=== PATIENT | female | born 1980 | race Caucasian/White ===

== ENCOUNTER 2017-12-28 13:49 | Inpatient (IN) | payer OTHER ==
[2017-12-28 15:23] LABS: ADD MAN DIFF? NO
[2017-12-28 15:29] LABS: WHITE BLOOD COUNT 9.1 10^3/ul (4.8-10.8)
[2017-12-28 15:29] LABS: BASOPHILS % 0.4 % (0.0-2.0); EOSINOPHILS # 0.3 10^3/ul (0.0-0.5); EOSINOPHILS % 3.4 % (0.0-7.0); HEMATOCRIT 40.6 % (37.0-47.0); HEMOGLOBIN 13.7 g/dl (12.0-16.0); LYMPHOCYTES # 2.7 10^3/ul (0.8-2.9); LYMPHOCYTES % 29.9 % (15.0-51.0); MEAN CORPUSCULAR HEMOGLOBIN 29.1 pg (29.0-33.0); MEAN CORPUSCULAR HGB CONC 33.7 g/dl (32.0-37.0); MEAN CORPUSCULAR VOLUME 86.2 fl (82.0-101.0); MEAN PLATELET VOLUME 8.6 fl (7.4-10.4); MONOCYTE # 0.7 10^3/ul (0.3-0.9); MONOCYTES % 7.7 % (0.0-11.0); NEUTROPHIL # 5.3 10^3/ul (1.6-7.5); NEUTROPHILS % 58.4 % (39.0-77.0); PLATELET COUNT 278 10^3/UL (140-415); RED BLOOD COUNT 4.71 10^6/ul (4.20-5.40); RED CELL DISTRIBUTION WIDTH 12.6 % (11.5-14.5)
[2017-12-28 15:48] LABS: ANION GAP 11 (8-16); BLOOD UREA NITROGEN 15 mg/dl (7-20); CALCIUM 9.1 mg/dl (8.4-10.2); CARBON DIOXIDE 26 mmol/L (21-31); CHLORIDE 105 mmol/L (97-110); CREATININE 0.79 mg/dl (0.44-1.00); GLUCOSE 91 mg/dl (70-220); POTASSIUM 3.7 mmol/L (3.5-5.1); SODIUM 138 mmol/L (135-144)
[2017-12-28 15:59] LABS: TROPONIN-I < 0.012 ng/ml (0.000-0.120)
[2017-12-28 17:22] LABS: D-DIMER 395.77 ng/ml (<460)
[2017-12-28] MEDS ORDERED: ONDANSETRON 4 MG INJ IV ×2 (19:30→20:30)
[2017-12-28] MEDS ORDERED: ACETAMINOPHEN 325 MG TAB PO ×2 (19:30→20:30)
[2017-12-28] MEDS ORDERED: DIPHENHYDRAMINE 50 MG INJ (20:18)
[2017-12-28] MEDS ORDERED: METOCLOPRAMIDE 10 MG INJ (20:18)
[2017-12-28] MEDS: DIPHENHYDRAMINE 50 MG INJ IV (20:23)
[2017-12-28] MEDS: METOCLOPRAMIDE 10 MG INJ IV (20:23)
[2017-12-28] MEDS ORDERED: BISACODYL (EC) 5 MG TAB PO (20:30)
[2017-12-28] MEDS ORDERED: NACL 0.9% 3 ML SYG IV (20:30)
[2017-12-28] MEDS ORDERED: DOCUSATE SODIUM 100 MG CAP PO (20:30)
[2017-12-28 21:16] LABS: PT RATIO 0.9
[2017-12-28 21:23] LABS: INR 0.87; PROTIME 11.9 Sec (11.9-14.9)
[2017-12-28] MEDS ORDERED: ASA/ACETAMINOPHEN/CAFF TAB PO (23:00)
[2017-12-28 23:04] LABS: CREATINE KINASE 32 IU/L (23-200)
[2017-12-28 23:14] LABS: CK INDEX 0.7; CK-MB < 0.22 ng/ml (0.0-2.4); TROPONIN-I < 0.012 ng/ml (0.000-0.120)
[2017-12-29] MEDS: KETOROLAC 30 MG INJ IV (03:36)
[2017-12-29 05:52] LABS: ADD MAN DIFF? NO
[2017-12-29 06:02] LABS: WHITE BLOOD COUNT 5.9 10^3/ul (4.8-10.8)
[2017-12-29 06:02] LABS: BASOPHILS % 0.5 % (0.0-2.0); EOSINOPHILS # 0.3 10^3/ul (0.0-0.5); EOSINOPHILS % 4.7 % (0.0-7.0); HEMOGLOBIN 12.9 g/dl (12.0-16.0); LYMPHOCYTES # 2.3 10^3/ul (0.8-2.9); LYMPHOCYTES % 38.9 % (15.0-51.0); MEAN CORPUSCULAR HGB CONC 33.1 g/dl (32.0-37.0); MEAN CORPUSCULAR VOLUME 87.6 fl (82.0-101.0); MEAN PLATELET VOLUME 8.3 fl (7.4-10.4); MONOCYTE # 0.5 10^3/ul (0.3-0.9); MONOCYTES % 8.9 % (0.0-11.0); NEUTROPHIL # 2.8 10^3/ul (1.6-7.5); NEUTROPHILS % 46.8 % (39.0-77.0); PLATELET COUNT 225 10^3/UL (140-415); RED BLOOD COUNT 4.45 10^6/ul (4.20-5.40); RED CELL DISTRIBUTION WIDTH 12.7 % (11.5-14.5)
[2017-12-29 07:24] LABS: ALANINE AMINOTRANSFERASE 35 IU/L (13-69); ALBUMIN 3.2 g/dl (3.3-4.9); ALBUMIN/GLOBULIN RATIO 0.96; ALKALINE PHOSPHATASE 112 IU/L (42-121); ANION GAP 11 (8-16); ASPARTATE AMINO TRANSFERASE 34 IU/L (15-46); BILIRUBIN,INDIRECT 0.4 mg/dl (0-1.1); BILIRUBIN,TOTAL 0.4 mg/dl (0.2-1.3); BLOOD UREA NITROGEN 14 mg/dl (7-20); CALCIUM 9.1 mg/dl (8.4-10.2); CARBON DIOXIDE 26 mmol/L (21-31); CHLORIDE 109 mmol/L (97-110); CHOLESTEROL 132 mg/dl (100-200); CREATININE 0.92 mg/dl (0.44-1.00); GLUCOSE 91 mg/dl (70-220); HDL CHOLESTEROL 44 mg/dl (34-82); LDL CHOLESTEROL,CALCULATED 54 mg/dl; MAGNESIUM 1.8 mg/dl (1.7-2.5); POTASSIUM 4.3 mmol/L (3.5-5.1); SODIUM 142 mmol/L (135-144); TOTAL PROTEIN 6.5 g/dl (6.1-8.1); TRIGLYCERIDES 169 mg/dl (0-149)
[2017-12-29 08:59] LABS: HEMOGLOBIN A1C 5.1 % (0-5.9)
[2017-12-29] MEDS ORDERED: ASPIRIN (EC) 325 MG TAB PO (14:00)
[2017-12-29] MEDS: SOD CHLORIDE 0.9% 100 ML (16:05)
[2017-12-29] MEDS: IOHEXOL 100 ML (16:05)
[2017-12-30] MEDS: ASPIRIN (EC) 325 MG TAB PO (08:47)
[2017-12-30] MEDS: CYANOCOBALAMIN 1000 MCG INJ IM (18:29)
== END 2017-12-30 18:54 | disposition home or self-care (01) | DRG 103 ==
LOC: E/R 13:49 → TEL 19:15
PROVIDERS: Internal Medicine
DX: G43.409 Hemiplegic migraine, not intractable, without status migrainosus (principal); K50.90 Crohn's disease, unspecified, without complications; R20.2 Paresthesia of skin; I48.0 Paroxysmal atrial fibrillation; Z85.43 Personal history of malignant neoplasm of ovary; Z90.710 Acquired absence of both cervix and uterus; Z90.49 Acquired absence of other specified parts of digestive tract
CPT/HCPCS: 36415; 70551; 71045; 71275; 72125; 80048; 80053; 80061; 82550; 82553; 82607; 83036; 83735; 84443; 84484; 84703; 85025; 85378; 85610; 93005; 93306; 93880; 97161; 99285-25

== ENCOUNTER 2018-11-04 08:22 | Inpatient (IN) | payer OTHER ==
[2018-11-04] MEDS: ONDANSETRON 4 MG INJ IV (09:09)
[2018-11-04] MEDS: morphine 4 MG/ML VIAL IV (09:09)
[2018-11-04] MEDS: SOD CHLORIDE 0.9% 1,000 ML IV (09:09)
[2018-11-04 09:14] LABS: ADD MAN DIFF? NO
[2018-11-04 09:20] LABS: WHITE BLOOD COUNT 9.2 10^3/ul (4.8-10.8)
[2018-11-04 09:20] LABS: BASOPHILS % 0.3 % (0.0-2.0); EOSINOPHILS # 0.2 10^3/ul (0.0-0.5); EOSINOPHILS % 2.1 % (0.0-7.0); HEMATOCRIT 44.7 % (37.0-47.0); HEMOGLOBIN 14.9 g/dl (12.0-16.0); LYMPHOCYTES # 1.9 10^3/ul (0.8-2.9); LYMPHOCYTES % 21.1 % (15.0-51.0); MEAN CORPUSCULAR HEMOGLOBIN 28.8 pg (29.0-33.0); MEAN CORPUSCULAR HGB CONC 33.3 g/dl (32.0-37.0); MEAN CORPUSCULAR VOLUME 86.3 fl (82.0-101.0); MEAN PLATELET VOLUME 8.4 fl (7.4-10.4); MONOCYTE # 0.6 10^3/ul (0.3-0.9); MONOCYTES % 6.3 % (0.0-11.0); NEUTROPHIL # 6.4 10^3/ul (1.6-7.5); NEUTROPHILS % 69.9 % (39.0-77.0); PLATELET COUNT 260 10^3/UL (140-415); RED BLOOD COUNT 5.18 10^6/ul (4.20-5.40); RED CELL DISTRIBUTION WIDTH 12.3 % (11.5-14.5)
[2018-11-04 09:24] LABS: ADD UMIC NO; UR ASCORBIC ACID 40 mg/dL (NEGATIVE); UR BILIRUBIN (Dip) NEGATIVE (NEGATIVE); UR BLOOD (Dip) NEGATIVE (NEGATIVE); UR CLARITY CLEAR (CLEAR); UR COLOR YELLOW (YELLOW); UR GLUCOSE (Dip) NEGATIVE (NEGATIVE); UR KETONES (Dip) NEGATIVE (NEGATIVE); UR LEUKOCYTE ESTERASE (Dip) NEGATIVE Leu/ul (NEGATIVE); UR NITRITE (Dip) NEGATIVE (NEGATIVE); UR SPECIFIC GRAVITY (Dip) 1.021 (1.003-1.030); UR TOTAL PROTEIN (Dip) NEGATIVE (NEGATIVE); UR UROBILINOGEN (Dip) NEGATIVE (NEGATIVE)
[2018-11-04 09:44] LABS: ALANINE AMINOTRANSFERASE 44 IU/L (13-69); ALBUMIN 4.7 g/dl (3.3-4.9); ALBUMIN/GLOBULIN RATIO 1.51; ALKALINE PHOSPHATASE 139 IU/L (42-121); ANION GAP 9 (5-13); ASPARTATE AMINO TRANSFERASE 41 IU/L (15-46); BILIRUBIN,INDIRECT 0.5 mg/dl (0-1.1); BILIRUBIN,TOTAL 0.5 mg/dl (0.2-1.3); BLOOD UREA NITROGEN 17 mg/dl (7-20); CALCIUM 10.3 mg/dl (8.4-10.2); CARBON DIOXIDE 27 mmol/L (21-31); CHLORIDE 105 mmol/L (97-110); CREATININE 0.91 mg/dl (0.44-1.00); Estimated GFR > 60 mL/min (>60); GLUCOSE 87 mg/dl (70-220); LIPASE 73 U/L (23-300); POTASSIUM 4.2 mmol/L (3.5-5.1); SODIUM 141 mmol/L (135-144)
[2018-11-04 09:55] LABS: TOTAL PROTEIN 7.8 g/dl (6.1-8.1)
[2018-11-04] MEDS: SOD CHLORIDE 0.9% 100 ML (10:32)
[2018-11-04] MEDS: IOHEXOL 300MG/ML 150 ML BTL (10:32)
[2018-11-04] MEDS: HYDROmorphONE 2 MG/ML SYG IV (11:17)
[2018-11-04] MEDS ORDERED: ACETAMINOPHEN 325 MG TAB PO (12:30)
[2018-11-04] MEDS ORDERED: ONDANSETRON 4 MG INJ IV (12:30)
[2018-11-04 13:53] LABS: C-REACTIVE PROTEIN 0.8 mg/dl (0.0-0.9)
[2018-11-04 14:47] LABS: ERYTHROCYTE SEDIMENTATION RATE 5 mm/Hr (0-20)
[2018-11-04] MEDS: METHYLPREDNISOLONE 40 MG INJ IV ×2 (15:44→22:13)
[2018-11-04] MEDS ORDERED: NACL 0.9% 3 ML SYG IV (16:30)
[2018-11-04] MEDS ORDERED: DILTIAZEM 25 MG INJ IV (17:00)
[2018-11-04] MEDS: DEXTROSE 5%-0.45% NACL 1,000 ML IV (18:11)
[2018-11-04] MEDS: morphine 2 MG INJ IV (19:56)
[2018-11-04] MEDS: KETOROLAC 30 MG INJ IV (22:13)
[2018-11-05] MEDS: METHYLPREDNISOLONE 40 MG INJ IV ×3 (05:29→22:10)
[2018-11-05] MEDS: DEXTROSE 5%-0.45% NACL 1,000 ML IV ×3 (05:29→22:28)
[2018-11-05] MEDS: PANTOPRAZOLE 40 MG INJ IV (05:29)
[2018-11-05 05:30] LABS: HEMATOCRIT 39.1 % (37.0-47.0); HEMOGLOBIN 13.1 g/dl (12.0-16.0); MEAN CORPUSCULAR HEMOGLOBIN 28.7 pg (29.0-33.0); MEAN CORPUSCULAR HGB CONC 33.5 g/dl (32.0-37.0); MEAN CORPUSCULAR VOLUME 85.7 fl (82.0-101.0); MEAN PLATELET VOLUME 8.8 fl (7.4-10.4); PLATELET COUNT 246 10^3/UL (140-415); RED BLOOD COUNT 4.56 10^6/ul (4.20-5.40); RED CELL DISTRIBUTION WIDTH 12.3 % (11.5-14.5)
[2018-11-05 05:30] LABS: WHITE BLOOD COUNT 6.4 10^3/ul (4.8-10.8)
[2018-11-05 05:32] LABS: ADD MAN DIFF? YES; POSITIVE DIFF @See below
[2018-11-05 06:37] LABS: ALANINE AMINOTRANSFERASE 31 IU/L (13-69); ALBUMIN 3.9 g/dl (3.3-4.9); ALBUMIN/GLOBULIN RATIO 1.25; ALKALINE PHOSPHATASE 111 IU/L (42-121); ANION GAP 8 (5-13); ASPARTATE AMINO TRANSFERASE 32 IU/L (15-46); BILIRUBIN,INDIRECT 0.4 mg/dl (0-1.1); BILIRUBIN,TOTAL 0.4 mg/dl (0.2-1.3); BLOOD UREA NITROGEN 12 mg/dl (7-20); CALCIUM 9.2 mg/dl (8.4-10.2); CARBON DIOXIDE 25 mmol/L (21-31); CHLORIDE 106 mmol/L (97-110); CREATININE 0.75 mg/dl (0.44-1.00); Estimated GFR > 60 mL/min (>60); GLUCOSE 141 mg/dl (70-220); MAGNESIUM 1.8 mg/dl (1.7-2.5); POTASSIUM 4.4 mmol/L (3.5-5.1); SODIUM 139 mmol/L (135-144)
[2018-11-05 06:53] LABS: THYROID STIMULATING HORMONE 0.501 MIU/L (0.465-4.680)
[2018-11-05 07:44] LABS: BAND NEUTROPHILS #M 0.4 10^3/ul (0.0-0.6); BAND NEUTROPHILS % (M) 7 % (0-4); GIANT THROMBO% (M) 1 % (0-0); LYMPHOCYTES #M 0.9 10^3/ul (0.8-2.9); LYMPHOCYTES % (M) 15 % (15-51); PLATELET ESTIMATE NORMAL; REACTIVE LYMPHOCYTES #M 0.2 10^3/ul (0.0-0.0); REACTIVE LYMPHOCYTES% (M) 4 % (0-0); SEG NEUT #M 4.8 10^3/ul (1.6-7.5); SEGMENTED NEUTROPHILS (M) % 74 % (39-77); SMUDGE%M 8 % (0-0); SPHEROCYTES 1+ (0-0)
[2018-11-05 08:16] LABS: HEMOGLOBIN A1C 4.9 % (0-5.9)
[2018-11-05] MEDS: ESTRADIOL 0.1 MG/24 HR PATCH TRANSDERM (09:56)
[2018-11-05] MEDS: PHENOL 1.4% SOLN 180 ML BTL MT ×2 (12:38→22:11)
[2018-11-05] MEDS: morphine 2 MG INJ IV ×3 (12:42→22:14)
[2018-11-05] MEDS: MAGNESIUM SULFATE 2 GM/50 ML 50 ML IVPB (14:38)
[2018-11-05] MEDS: DIGOXIN 500 MCG INJ IV (14:38)
[2018-11-05] MEDS: KETOROLAC 30 MG INJ IV (14:42)
[2018-11-05] MEDS: METOPROLOL 5 MG INJ IV ×2 (14:43→17:49)
[2018-11-06] MEDS: GLUCAGON 1 MG INJ IV (01:00)
[2018-11-06] MEDS: IOHEXOL 100 ML (01:52)
[2018-11-06] MEDS: SOD CHLORIDE 0.9% 100 ML (01:52)
[2018-11-06] MEDS: IOHEXOL 350MG/ML 50 ML BTL (01:52)
[2018-11-06] MEDS: IOHEXOL 14.3 MG(I)/ML (ADULT) BTL PO (02:03)
[2018-11-06] MEDS: DEXTROSE 5%-0.45% NACL 1,000 ML IV (04:30)
[2018-11-06 05:49] LABS: ADD MAN DIFF? NO
[2018-11-06 05:51] LABS: BASOPHILS % 0.1 % (0.0-2.0); HEMATOCRIT 38.9 % (37.0-47.0); HEMOGLOBIN 12.8 g/dl (12.0-16.0); LYMPHOCYTES # 1.1 10^3/ul (0.8-2.9); LYMPHOCYTES % 7.2 % (15.0-51.0); MEAN CORPUSCULAR HEMOGLOBIN 28.9 pg (29.0-33.0); MEAN CORPUSCULAR HGB CONC 32.9 g/dl (32.0-37.0); MEAN CORPUSCULAR VOLUME 87.8 fl (82.0-101.0); MEAN PLATELET VOLUME 8.8 fl (7.4-10.4); MONOCYTE # 0.8 10^3/ul (0.3-0.9); MONOCYTES % 5.2 % (0.0-11.0); NEUTROPHIL # 12.7 10^3/ul (1.6-7.5); NEUTROPHILS % 86.7 % (39.0-77.0); PLATELET COUNT 246 10^3/UL (140-415); RED BLOOD COUNT 4.43 10^6/ul (4.20-5.40); RED CELL DISTRIBUTION WIDTH 12.6 % (11.5-14.5)
[2018-11-06 05:51] LABS: WHITE BLOOD COUNT 14.6 10^3/ul (4.8-10.8)
[2018-11-06] MEDS: PANTOPRAZOLE 40 MG INJ IV (06:01)
[2018-11-06] MEDS: METHYLPREDNISOLONE 40 MG INJ IV ×3 (06:01→21:46)
[2018-11-06] MEDS: METOPROLOL 5 MG INJ IV ×3 (06:02→11:14)
[2018-11-06 06:14] LABS: ANION GAP 7 (5-13); BLOOD UREA NITROGEN 14 mg/dl (7-20); CARBON DIOXIDE 26 mmol/L (21-31); CHLORIDE 105 mmol/L (97-110); CREATININE 0.74 mg/dl (0.44-1.00); Estimated GFR > 60 mL/min (>60); GLUCOSE 133 mg/dl (70-220); MAGNESIUM 2.3 mg/dl (1.7-2.5); PHOSPHORUS 3.8 mg/dl (2.5-4.9); POTASSIUM 4.2 mmol/L (3.5-5.1); SODIUM 138 mmol/L (135-144)
[2018-11-06] MEDS: morphine 2 MG INJ IV (07:36)
[2018-11-06] MEDS: ESTRADIOL 0.1 MG/24 HR PATCH TRANSDERM ×2 (09:00→09:10)
[2018-11-06] MEDS ORDERED: METOPROLOL 5 MG INJ IV (12:30)
[2018-11-06] MEDS: FLECAINIDE 50 MG TAB PO ×2 (13:11→21:47)
[2018-11-06] MEDS: DILTIAZEM 30 MG TAB PO ×2 (13:11→18:20)
[2018-11-06] MEDS: KETOROLAC 30 MG INJ IV (21:55)
[2018-11-07] MEDS: PANTOPRAZOLE 40 MG INJ IV (05:41)
[2018-11-07] MEDS: METHYLPREDNISOLONE 40 MG INJ IV (05:41)
[2018-11-07] MEDS: DILTIAZEM 30 MG TAB PO ×4 (05:49→19:03)
[2018-11-07 06:08] LABS: ADD MAN DIFF? NO
[2018-11-07 06:57] LABS: ANION GAP 9 (5-13); BLOOD UREA NITROGEN 16 mg/dl (7-20); CALCIUM 9.3 mg/dl (8.4-10.2); CARBON DIOXIDE 25 mmol/L (21-31); CHLORIDE 105 mmol/L (97-110); CREATININE 0.72 mg/dl (0.44-1.00); Estimated GFR > 60 mL/min (>60); GLUCOSE 108 mg/dl (70-220); MAGNESIUM 2.2 mg/dl (1.7-2.5); PHOSPHORUS 4.6 mg/dl (2.5-4.9); POTASSIUM 4.6 mmol/L (3.5-5.1); SODIUM 139 mmol/L (135-144)
[2018-11-07] MEDS: FLECAINIDE 50 MG TAB PO ×2 (08:30→20:52)
[2018-11-07 08:48] LABS: BASOPHILS % 0.1 % (0.0-2.0); HEMATOCRIT 40.9 % (37.0-47.0); HEMOGLOBIN 13.1 g/dl (12.0-16.0); LYMPHOCYTES # 1.5 10^3/ul (0.8-2.9); LYMPHOCYTES % 12.8 % (15.0-51.0); MEAN CORPUSCULAR HEMOGLOBIN 28.2 pg (29.0-33.0); MEAN CORPUSCULAR VOLUME 88.1 fl (82.0-101.0); MEAN PLATELET VOLUME 8.9 fl (7.4-10.4); MONOCYTE # 0.4 10^3/ul (0.3-0.9); MONOCYTES % 3.1 % (0.0-11.0); NEUTROPHIL # 9.5 10^3/ul (1.6-7.5); NEUTROPHILS % 83.5 % (39.0-77.0); PLATELET COUNT 247 10^3/UL (140-415); RED BLOOD COUNT 4.64 10^6/ul (4.20-5.40)
[2018-11-07 08:48] LABS: WHITE BLOOD COUNT 11.4 10^3/ul (4.8-10.8)
[2018-11-07] MEDS ORDERED: HYDROCODONE/APAP (5/325) TAB PO (09:30)
[2018-11-07] MEDS: predniSONE 20 MG TAB PO (13:21)
[2018-11-07] MEDS: ONDANSETRON 4 MG INJ IV ×2 (13:22→20:52)
[2018-11-08] MEDS: DILTIAZEM 30 MG TAB PO ×4 (05:39→22:00)
[2018-11-08] MEDS: ONDANSETRON 4 MG INJ IV (05:51)
[2018-11-08 06:19] LABS: ADD MAN DIFF? NO
[2018-11-08 06:29] LABS: WHITE BLOOD COUNT 11.1 10^3/ul (4.8-10.8)
[2018-11-08 06:29] LABS: BASOPHILS % 0.1 % (0.0-2.0); HEMATOCRIT 38.4 % (37.0-47.0); HEMOGLOBIN 12.5 g/dl (12.0-16.0); LYMPHOCYTES # 2.3 10^3/ul (0.8-2.9); LYMPHOCYTES % 20.4 % (15.0-51.0); MEAN CORPUSCULAR HEMOGLOBIN 28.7 pg (29.0-33.0); MEAN CORPUSCULAR HGB CONC 32.6 g/dl (32.0-37.0); MEAN CORPUSCULAR VOLUME 88.1 fl (82.0-101.0); MEAN PLATELET VOLUME 9.2 fl (7.4-10.4); MONOCYTES % 8.7 % (0.0-11.0); NEUTROPHIL # 7.8 10^3/ul (1.6-7.5); NEUTROPHILS % 70.3 % (39.0-77.0); PLATELET COUNT 229 10^3/UL (140-415); RED BLOOD COUNT 4.36 10^6/ul (4.20-5.40); RED CELL DISTRIBUTION WIDTH 12.7 % (11.5-14.5)
[2018-11-08 07:30] LABS: ANION GAP 8 (5-13); BLOOD UREA NITROGEN 17 mg/dl (7-20); CALCIUM 8.9 mg/dl (8.4-10.2); CARBON DIOXIDE 26 mmol/L (21-31); CHLORIDE 105 mmol/L (97-110); Estimated GFR > 60 mL/min (>60); GLUCOSE 91 mg/dl (70-220); MAGNESIUM 2.2 mg/dl (1.7-2.5); POTASSIUM 4.2 mmol/L (3.5-5.1); SODIUM 139 mmol/L (135-144)
[2018-11-08] MEDS: predniSONE 20 MG TAB PO (08:11)
[2018-11-08] MEDS: FLECAINIDE 50 MG TAB PO ×2 (08:12→20:16)
[2018-11-09 05:53] LABS: ADD MAN DIFF? NO
[2018-11-09] MEDS: DILTIAZEM 30 MG TAB PO ×2 (06:00→14:00)
[2018-11-09 06:02] LABS: BASOPHILS % 0.2 % (0.0-2.0); EOSINOPHILS % 0.4 % (0.0-7.0); HEMATOCRIT 43.6 % (37.0-47.0); HEMOGLOBIN 13.9 g/dl (12.0-16.0); LYMPHOCYTES # 3.9 10^3/ul (0.8-2.9); LYMPHOCYTES % 38.3 % (15.0-51.0); MEAN CORPUSCULAR HEMOGLOBIN 28.4 pg (29.0-33.0); MEAN CORPUSCULAR HGB CONC 31.9 g/dl (32.0-37.0); MEAN CORPUSCULAR VOLUME 89.2 fl (82.0-101.0); MEAN PLATELET VOLUME 9.9 fl (7.4-10.4); MONOCYTE # 0.9 10^3/ul (0.3-0.9); MONOCYTES % 8.4 % (0.0-11.0); NEUTROPHIL # 5.3 10^3/ul (1.6-7.5); PLATELET COUNT 212 10^3/UL (140-415); RED BLOOD COUNT 4.89 10^6/ul (4.20-5.40); RED CELL DISTRIBUTION WIDTH 12.9 % (11.5-14.5)
[2018-11-09 06:02] LABS: WHITE BLOOD COUNT 10.2 10^3/ul (4.8-10.8)
[2018-11-09 06:23] LABS: ANION GAP 8 (5-13); BLOOD UREA NITROGEN 19 mg/dl (7-20); CALCIUM 9.2 mg/dl (8.4-10.2); CARBON DIOXIDE 28 mmol/L (21-31); CHLORIDE 104 mmol/L (97-110); CREATININE 0.94 mg/dl (0.44-1.00); Estimated GFR > 60 mL/min (>60); GLUCOSE 73 mg/dl (70-220); MAGNESIUM 2.2 mg/dl (1.7-2.5); POTASSIUM 3.8 mmol/L (3.5-5.1); SODIUM 140 mmol/L (135-144)
[2018-11-09] MEDS: predniSONE 20 MG TAB PO (08:55)
[2018-11-09] MEDS: FLECAINIDE 50 MG TAB PO ×2 (08:56→13:05)
[2018-11-09] MEDS: POTASSIUM CHLORIDE (SR) 20 MEQ TAB PO (14:08)
[2018-11-09] MEDS ORDERED: FLECAINIDE 50 MG TAB PO (21:00)
== END 2018-11-09 14:35 | disposition home or self-care (01) | DRG 387 ==
LOC: FTE 08:22 → 6WM 12:12
DX: K50.112 Crohn's disease of large intestine with intestinal obstruction (principal); I48.0 Paroxysmal atrial fibrillation; K76.9 Liver disease, unspecified; Z79.01 Long term (current) use of anticoagulants; Z85.43 Personal history of malignant neoplasm of ovary
CPT/HCPCS: 36415; 74177; 80048; 80053; 81003; 83036; 83690; 83735; 84100; 84443; 84703; 85025; 85651; 86140; 93306; 96361; 96374; 96375; 99285-25